=== PATIENT | male | born 1950 | race Caucasian/White ===

== ENCOUNTER → 2018-06-17 | Outpatient (CLI) | payer MEDICARE ==
[2018-06-19 14:13] LABS: PSA % FREE 33.1 % (.); PSA FREE 1.72 ng/mL; PSA TOTAL 5.2 ng/mL (0.0-4.0)
== END ==
LOC: M SMT 13:46
DX: R97.20 Elevated prostate specific antigen [PSA] (principal)
CPT/HCPCS: 84154

== ENCOUNTER → 2018-08-10 | Outpatient (CLI) | payer BC ==
--- NOTE | 2018-08-10 12:00 | REP ---
TRANSRECTAL PROSTATE ULTRASOUND WITH ULTRASOUND GUIDANCE FOR PROSTATE BIOPSY: Transrectal prostate ultrasound performed. The size of the gland of the gland is 4.7 x 4.0 x 5.7 cm for a total volume of 52.2 mL. Echotexture is heterogeneous with scattered tiny cystic changes and calcifications. Seminal vesicles are symmetrical. Ultrasound guidance was provided for Dr. Del Toro who performed ultrasound guided biopsy of the prostate. Electronically Signed by Victor Manuel Powers MD 08/10/2018 12:48 P
== END ==
LOC: M SMT PRO 08:04
PROVIDERS: ATTEND Urology
DX: C61 Malignant neoplasm of prostate (principal)
CPT/HCPCS: 76872; 76942; G0416

== ENCOUNTER → 2018-09-20 | Outpatient (CLI) | payer MEDICARE ==
[~2018-09-20] MED LIST: ASPI81TA85 PO; ATEN100T PO; HYDR12.55 PO; LATA1POW OU; LEVO50TA5 PO; LOSA100T50 PO; METF500T13 PO; OMEP20TA PO; TIMO0.5S39 OP
--- NOTE | 2018-09-20 10:21 | REP ---
Chest two views HISTORY: Prostate carcinoma Comparison: None The lungs are clear. The heart is normal in size. The pulmonary vasculature is normal in appearance. The bony structure is intact. IMPRESSION: No acute disease. Electronically Signed by Leonard Chan MD 09/20/2018 10:12 A
[2018-09-20 13:33] LABS: HEMATOCRIT 43.2 % (42.0-52.0); HEMOGLOBIN 14.4 g/dl (13.5-17.5); MEAN CORPUSCULAR HEMOGLOBIN 30.8 pg (27.0-33.0); MEAN CORPUSCULAR HGB CONC 33.3 g/dl (32.0-36.5); MEAN CORPUSCULAR VOLUME 92.3 fl (80.0-96.0); PLATELET COUNT, AUTOMATED 166 10^3/uL (150-450); RED BLOOD COUNT 4.68 10^6/uL (4.30-6.10); WHITE BLOOD COUNT 7.1 10^3/uL (4.0-10.0)
[2018-09-20 13:44] LABS: INR 0.98; PARTIAL THROMBOPLASTIN TIME 29.3 SECONDS (25.4-37.6); PROTHROMBIN TIME 13.1 SECONDS (12.1-14.4)
[2018-09-20 13:58] LABS: CALCIUM LEVEL 9.7 MG/DL (8.8-10.2); CREATININE FOR GFR 1.37 MG/DL (0.70-1.30); POTASSIUM SERUM 4.6 MEQ/L (3.5-5.1)
== END ==
LOC: M SMT 09:00
PROVIDERS: ATTEND Urology
DX: Z01.818 Encounter for other preprocedural examination (principal); C61 Malignant neoplasm of prostate; N39.0 Urinary tract infection, site not specified

== ENCOUNTER 2018-09-30 07:30 | Inpatient (IN) | payer MEDICARE ==
[~2018-09-30] VITALS: Ht 175.3 cm; Wt 93.0 kg
[~2018-09-30 07:30] MED LIST changes: +LR 1,000 ML IV ONE
[2018-09-30] MEDS: DOCUSATE SODIUM 100 MG CAP PO SCH ×2 (09:00→21:13)
[2018-09-30] MEDS ORDERED: LIDOCAINE 1% SDV INJ 30 ML VIAL As Ordered ONE (11:51)
[2018-09-30] MEDS ORDERED: BUPIVACAINE HCL 0.25% 30 ML VIAL As Ordered ONE (11:52)
[2018-09-30] MEDS ORDERED: MORPHINE 4 MG/ML 1ML VIAL/SYRINGE (J2270) IV PRN (12:15)
[2018-09-30] MEDS ORDERED: PERCOCET 5MG/325MG TAB PO PRN ×2 (12:15)
[2018-09-30] MEDS ORDERED: ACETAMINOPHEN TAB 650MG DOSE (2X325MG) PO PRN (12:15)
[2018-09-30] MEDS ORDERED: GLUCOSE 4 GM CHEW TABLET PO PRN (12:15)
[2018-09-30] MEDS ORDERED: ONDANSETRON 4MG/2ML VIAL (J2405) IV PRN ×2 (12:15→19:15)
[2018-09-30] MEDS ORDERED: GLUCAGON FOR INJ 1 MG VIAL (J1610) SC PRN (12:15)
[2018-09-30] MEDS ORDERED: DEXTROSE 50% 50 ML SYRINGE IV PRN (12:15)
[2018-09-30] MEDS ORDERED: ROCURONIUM BROMIDE 50 MG/5 ML VIAL As Ordered ONE ×2 (13:12→15:33)
[2018-09-30] MEDS ORDERED: LIDOCAINE 2% INJ 100 MG/5 ML SDV (FOR ANES.) As Ordered ONE (13:12)
[2018-09-30] MEDS ORDERED: PROPOFOL 200 MG/20 ML VIAL As Ordered ONE ×2 (13:12→17:58)
[2018-09-30] MEDS ORDERED: fentaNYL 250 MCG/5 ML INJECTION (J3010) As Ordered ONE (13:12)
[2018-09-30] MEDS ORDERED: ePHEDrine SULFATE 25 MG/5 ML(5MG/ML) SYRINGE As Ordered ONE (13:12)
[2018-09-30] MEDS ORDERED: HYDROmorphone HCL 2 MG/ML 1ML VIAL (J1170) As Ordered ONE (13:12)
[2018-09-30] MEDS ORDERED: ONDANSETRON 4MG/2ML VIAL (J2405) As Ordered ONE (13:12)
[2018-09-30] MEDS ORDERED: MIDAZOLAM INJ 2 MG/2 ML VIAL (J2250) As Ordered ONE (13:12)
[2018-09-30] MEDS ORDERED: dexameTHASONE 4 MG/ML 1ML VIAL (J1100) As Ordered ONE (13:12)
[2018-09-30] MEDS ORDERED: SUGAMMADEX SODIUM 500 MG/5 ML VIAL (BRIDION) As Ordered ONE (13:12)
[2018-09-30] MEDS ORDERED: ACETAMINOPHEN 1000MG 100ML IV BTL (OFIRMEV) (J0131 PER 10MG) As Ordered ONE (13:32)
[2018-09-30] MEDS ORDERED: HEPARIN SOD (PORCINE) 5000 UNITS/ML VIAL SC ONE ×2 (13:44→13:46)
[2018-09-30] MEDS: HumaLOG INSULIN (NovoLOG) PER UNIT SC SCH (17:30)
--- NOTE | 2018-09-30 18:57 | ROOPDOC ---
[facility] Report Of Operation Report of Operation DATE OF PROCEDURE: 09/30/18 PREPROCEDURE DIAGNOSES: Prostate Cancer. POSTPROCEDURE DIAGNOSES: Prostate Cancer. PROCEDURE: Robotic-assisted Laparoscopic Radical Prostatectomy, Anterior Bladder Neck Reconstruction, Flexible Cystoscopy with Catheter Placement Over a Wire. SURGEON: Blas Grey MD [employer] LEADER: Missy Rosas NP ANESTHESIA: General. OPERATIVE INDICATIONS: This is a 68 year old male with low risk clinical T1c Gle ason 3+3 prostate cancer. After a discussion of the options for treatment, he elected to undergo the above procedure. DESCRIPTION OF PROCEDURE: The patient was brought to the operating room and general anesthesia was induced. Prophylactic antibiotics were infused. He was then placed in the dorsal lithotomy position and prepped and draped in the usual sterile fashion. At this point, a Otto catheter was inserted into the bladder and the balloon was filled with 10 mL of sterile water. We then made a midline incision just above the umbilicus for a 12 mm port. A Veress needle was utilized to achieve pneumoperitoneum. Next, an 8 mm port was inserted into the incision and subsequently a camera was inserted. There were no injuries from the Veress needle or initial trocar placement. At this point, we placed the remaining ports, including a 12 mm foundation assistant port and then three robotic ports in the usual configuration in line with the umbilicus. Once all the ports were placed, the robot was docked. Lysis of adhesions between the sigmoid colon and abdominal wall was then performed. The bladder was then released from the anterior abdominal wall using electrocautery. Once the bladder was dropped, the fat overlying the prostate was cleared using electrocautery. The superficial dorsal vein was controlled with electrocautery. The endopelvic fascia was opened on both sides and the dorsal venous complex was cleared. Next, a #0 Vicryl [id number] stitch was placed around the dorsal venous complex. Once that was done, the bladder was opened and dissected away from the prostate. Of note, the patient had a large median lobe that made dissection of the prostate off the bladder very difficult. Once this was done, the patient had a very large bladder neck. At this point I dissected posterior and the vasa deferentia were identified. They were ligated with Weck clips and transected. The seminal vesicles were then dissected out and while doing this the right seminal vesicle was avulsed from the prostate. It was therefore send separately for pathology. At this point the neurovascular bundles were dissected off the prostate bilaterally. When that was done bilateral pedicles were ligated and transected using a Harmonic scalpel. After taking care of the pedicles and mobilizing the rectum off the prostate below. At this point, the dorsal venous complex was transected with electrocautery. The urethra was then opened and the catheter was withdrawn and the posterior urethra was transected, thus freeing the prostate. At this point, we checked for hemostasis and it did appear very good. Once hemostasis was confirmed, I then moved on to perform the vesicourethral anastomosis. The vesicourethral anastomosis was performed in running fashion using a Quill stitch. An anterior bladder neck reconstruction was performed given the redundant amount of bladder neck. Once this was done, the final #20- [place] Otto catheter was placed. The balloon was filled with 15 mL of sterile water. Upon completion of the vesicourethral anastomosis, it was tested by filling the bladder with sterile water. When trying to irrigate and aspirate fluid into the bladder we were not able to withdraw any fluid from the catheter, raising concern the catheter was not in the right place. Several attempts were made to place a new catheter into the bladder and it would go all the way in. I therefore performed flexible cystoscopy at bedside and noted a small defect in the posterior anastomosis. I was able to navigate above it and into the bladder. A wire was then advanced into the bladder and the cystoscope was withdrawn. I then advanced a 20Fr [place] tip catheter over the wire and into the bladder. The balloon was then filled with 15mL of sterile water and this catheter irrigated very well. At this point, the prostate was placed in an Endo Catch bag for future retrieval. The robot was then undocked. A Dion fascial closure device was utilized to place a #0 Vicryl suture between the fascia of the 12 mm foundation assistant port. At this point, a Julián-Salazar drain was brought in through the left robotic port skin site and the drain was positioned anterior to the bladder. The drain was secured to the skin with #2-0 Ethilon suture. Next, all the remaining ports were removed and there did not appear to be any bleeding from any of the port sites. The prostate was then extracted from the camera port site after the skin was extended. The fascia in this incision was then closed with a running #0 Vicryl stitch. The previously placed #0 Vicryl free ties through the foundation assistant port were then tied down and all incisions were irrigated. Last, all of the incisions were closed with running subcuticular #4-0 Monocryl sutures. Local anesthesia was applied. Dermabond was then applied to the incisions. This marked the conclusion of the procedure. The patient was then taken out of the dorsal lithotomy position, awakened from anesthesia and transported to the recovery room in stable condition. ESTIMATED BLOOD LOSS: 50 mL. COMPLICATIONS: None. SPECIMENS: Prostate, right seminal vesicle. PLAN: The patient will be admitted to the hospital postoperatively, and he will likely be discharged home within the next 1-2 days. BLAS GREY MD Sep 30, 2018 18:57
[2018-09-30] MEDS ORDERED: oxyCODONE 5MG TAB PO PRN (19:15)
[2018-09-30] MEDS ORDERED: HYDROMORPHONE HCL 0.5 MG/ 0.5 ML SYRINGE (J1170 PER 1) IV PRN (19:15)
[2018-09-30] MEDS ORDERED: LR 1,000 ML IV SCH (19:15)
[2018-09-30] MEDS ORDERED: fentaNYL 100 MCG/2 ML INJECTION (J3010) IV PRN (19:15)
[2018-09-30 19:21] LABS: HEMATOCRIT 41.5 % (42.0-52.0); HEMOGLOBIN 13.8 g/dl (13.5-17.5); MEAN CORPUSCULAR HEMOGLOBIN 30.7 pg (27.0-33.0); MEAN CORPUSCULAR HGB CONC 33.3 g/dl (32.0-36.5); MEAN CORPUSCULAR VOLUME 92.4 fl (80.0-96.0); PLATELET COUNT, AUTOMATED 157 10^3/uL (150-450); RED BLOOD COUNT 4.49 10^6/uL (4.30-6.10); WHITE BLOOD COUNT 12.5 10^3/uL (4.0-10.0)
[2018-09-30 19:30] VITALS: BP 117/74
[2018-09-30 19:42] LABS: CALCIUM LEVEL 8.7 MG/DL (8.8-10.2); CREATININE FOR GFR 1.65 MG/DL (0.70-1.30); GLOMERULAR FILTRATION RATE 44.4 (>49); POTASSIUM SERUM 4.6 MEQ/L (3.5-5.1)
[2018-09-30 20:15] VITALS: BP 117/74
[2018-09-30 20:45] VITALS: BP 164/84
[2018-09-30] MEDS ORDERED: HumaLOG INSULIN (NovoLOG) PER UNIT SC SCH (21:00)
[2018-09-30] MEDS ORDERED: LATANOPROST 0.005% OPHTH SOLN 2.5 ML OU SCH (21:00)
[2018-09-30] MEDS: NS 1,000 ML IV SCH ×2 (21:09→21:14)
[2018-09-30] MEDS: ceFAZolin SOD 1 GM in D5W MINI-BAG PLUS 50 ML IV SCH (21:11)
[2018-09-30] MEDS: hydroCHLOROthiazide 12.5 MG CAPSULE PO SCH (21:13)
[2018-09-30] MEDS: OMEPRAZOLE 20 MG CAP PO SCH (21:13)
[2018-09-30] MEDS: LOSARTAN 50 MG TAB PO SCH (21:14)
[2018-09-30] MEDS: HEPARIN SOD (PORCINE) 5000 UNITS/ML VIAL SC SCH (21:16)
[2018-09-30 21:45] VITALS: BP 135/85
[2018-09-30] MEDS: TIMOLOL MALEATE 0.5% OPHTH SOLN 5 ML OU SCH ×2 (22:28→22:30)
[2018-09-30 22:45] VITALS: BP 138/80
[2018-10-01] MEDS: NS 1,000 ML IV SCH (04:31)
[2018-10-01] MEDS: ceFAZolin SOD 1 GM in D5W MINI-BAG PLUS 50 ML IV SCH (05:34)
[2018-10-01] MEDS: HEPARIN SOD (PORCINE) 5000 UNITS/ML VIAL SC SCH ×2 (05:35→14:00)
[2018-10-01] MEDS ORDERED: LEVOTHYROXINE 75MCG TABLET (0.075MG) PO SCH (06:00)
[2018-10-01 06:21] LABS: HEMATOCRIT 38.6 % (42.0-52.0); HEMOGLOBIN 12.6 g/dl (13.5-17.5); MEAN CORPUSCULAR HEMOGLOBIN 30.5 pg (27.0-33.0); MEAN CORPUSCULAR HGB CONC 32.6 g/dl (32.0-36.5); MEAN CORPUSCULAR VOLUME 93.5 fl (80.0-96.0); PLATELET COUNT, AUTOMATED 150 10^3/uL (150-450); RED BLOOD COUNT 4.13 10^6/uL (4.30-6.10); WHITE BLOOD COUNT 11.6 10^3/uL (4.0-10.0)
[2018-10-01 06:39] LABS: CALCIUM LEVEL 8.3 MG/DL (8.8-10.2); CREATININE FOR GFR 1.61 MG/DL (0.70-1.30); GLOMERULAR FILTRATION RATE 45.7 (>49); POTASSIUM SERUM 4.2 MEQ/L (3.5-5.1)
[2018-10-01] MEDS: HumaLOG INSULIN (NovoLOG) PER UNIT SC SCH ×2 (07:30→12:00)
[2018-10-01] MEDS: DOCUSATE SODIUM 100 MG CAP PO SCH (08:08)
[2018-10-01] MEDS: hydroCHLOROthiazide 12.5 MG CAPSULE PO SCH (08:08)
[2018-10-01] MEDS: LOSARTAN 50 MG TAB PO SCH (08:08)
[2018-10-01 08:09] VITALS: BP 164/84
[2018-10-01] MEDS: OMEPRAZOLE 20 MG CAP PO SCH (08:09)
[2018-10-01] MEDS ORDERED: ATENOLOL 50 MG TAB PO SCH (09:00)
--- NOTE | 2018-10-01 09:53 | IPNPDOC ---
Assessment/Plan Date Seen The patient was seen on 10/01/18. Patient Summary This is a 68 y/o M POD1 s/p RALP. He is doing well this morning. His Hb is stable. His Cr is 1.6 (baseline is 1.3). Very good UOP. Plan/VTE VTE Prophylaxis Ordered?: Yes VTE Exclusion Mechanical Proph: N/A:VTE Prophy Ordered VTE Exclusion Pharmacological: N/A:VTE Prophy Ordered Plan/Urinary Catheter Urinary Catheter: Other Catheter: (catheter will need to stay in for 10-14 days for healing of the vesicourethral anastomosis) Plan - d/c IVF - percocet prn pain - cont home meds - SCDs when in bed - SQH - incentive spirometry - strict I/Os - ambulate - likely discharge home later today w/ catheter Subjective Review oF Systems Chief Complaint The patient is a 68-year-old male admitted with a reason for visit of Prostate Cancer. Events since Last Encounter No acute events o/n. Patient has minimal pain. No n/v. Has not ambulated yet. Tolerating diet. No f/c/ns. Objective Physical Examination General Exam: Alert, Cooperative, No Acute Distress ABDOMEN EXAM: Soft, Other (incisions clean/dry/ intact; STEPHANIE w/ serosanguinous output); No: Tenderness Skin Exam: Nl turgor and temperature Neuro Exam: Normal Speech Psych Exam: Mental status NL, Mood NL Other physical findings catheter draining clear urine Vital Signs/I&O Vital Signs Date Time Temp Pulse Resp B/P (MAP) Pulse Ox O2 Delivery O2 Flow Rate FiO2 10/01/18 08:09 88 164/84 09/30/18 22:45 98.6 20 96 09/30/18 20:45 2.0 I&O- Last 24 Hours up to 6 AM 10/01/18 06:00 Intake Total 4095 ml Output Total 1605 ml Balance 2490 ml Laboratory Data Labs 24H Laboratory Tests 2 09/30/18 11:52: Bedside Glucose (Misc Panel) 106 09/30/18 18:58: Nucleated Red Blood Cells % (auto) 0.0, Anion Gap 7L, Glomerular Filtration Rate 44.4L, Blood Urea Nitrogen 21H, Creatinine 1.65H, Sodium Level 138, Potassium Level 4.6, Chloride Level 104, Carbon Dioxide Level 27, Calcium Level 8.7L 09/30/18 19:01: Bedside Glucose (Misc Panel) 154H 09/30/18 21:22: Bedside Glucose (Misc Panel) 135H 10/01/18 05:33: Nucleated Red Blood Cells % (auto) 0.0, Anion Gap 7L, Glomerular Filtration Rate 45.7L, Blood Urea Nitrogen 25H, Creatinine 1.61H, Sodium Level 140, Potassium Level 4.2, Chloride Level 106, Carbon Dioxide Level 27, Calcium Level 8.3L CBC/BMP Laboratory Tests 09/30/18 18:58 Red Blood Count 4.49, Mean Corpuscular Volume 92.4, Mean Corpuscular Hemoglobin 30.7, Mean Corpuscular Hemoglobin Concent 33.3, Red Cell Distribution Width 12.8, Calcium Level 8.7 L 10/01/18 05:33 Red Blood Count 4.13 L, Mean Corpuscular Volume 93.5, Mean Corpuscular Hemoglobin 30.5, Mean Corpuscular Hemoglobin Concent 32.6, Red Cell Distribution Width 12.9, Calcium Level 8.3 L FSBS Laboratory Tests Test 09/30/18 11:52 09/30/18 19:01 09/30/18 21:22 Range/Units Bedside Glucose (Misc Panel) 106 154 135 80-115 MG/DL BLAS GREY MD Oct 01, 2018 09:53
[2018-10-01 10:00] VITALS: BP 145/86
[2018-10-01 14:00] VITALS: BP 117/70
[2018-10-01] MEDS ORDERED: COLA100C5 PO (17:00)
[2018-10-01] MEDS ORDERED: XALA0.007 OU (17:00)
[2018-10-01] MEDS ORDERED: ACET1TAB55 PO (17:00)
[2018-10-01] MEDS ORDERED: OXYC1TAB23 PO (17:00)
[2018-10-01] MEDS ORDERED: CIPR-249 PO (17:00)
--- NOTE | 2018-10-01 19:19 | DSES ---
DATE OF ADMISSION: 09/30/2018 DATE OF DISCHARGE: 10/01/2018 ADMISSION DIAGNOSIS: 1. Prostate cancer. DISCHARGE DIAGNOSIS: 1. Prostate cancer. ADMITTING PHYSICIAN: Pasquale Del Toro MD DISCHARGE PHYSICIAN: Pasquale Del Toro MD PROCEDURE PERFORMED: Robotic-assisted laparoscopic radical prostatectomy. HISTORY OF PRESENT ILLNESS: This 68-year-old male with prostate cancer who underwent the above listed procedure and was admitted postoperatively. HOSPITALIZATION COURSE: The patient's postoperative course was unremarkable. By postoperative day 1, he was ambulating well with very good pain control on oral pain medications. He was tolerating regular diet. All of his blood work was within normal limits. He had excellent urine output from his Otto catheter and minimal output from his Julián-Salazar drain. His Julián-Salazar drain was therefore removed on postoperative day 1. Since he was doing very well, he was deemed ready for discharge. He was discharged home on postoperative day 1 with his catheter in place and plan for him to followup in clinic in approximately one week to discuss pathology results. Of note, we will likely leave his catheter in for two weeks and get a cystogram prior to removing the catheter.
== END 2018-10-01 17:30 | disposition home or self-care (01) | DRG 708 ==
LOC: M OR 10:43 → M MS5PR 20:10
PROVIDERS: ADMIT Urology; ATTEND Urology
PROC: 0TQB4ZZ Repair Bladder, Percutaneous Endoscopic Approach (ICD-10-PCS; 2018-09-30)
PROC: 8E0W4CZ Robotic Assisted Procedure of Trunk Region, Percutaneous Endoscopic Approach (ICD-10-PCS; 2018-09-30)
PROC: 0TJB8ZZ Inspection of Bladder, Via Natural or Artificial Opening Endoscopic (ICD-10-PCS; 2018-09-30)
PROC: 0VT04ZZ Resection of Prostate, Percutaneous Endoscopic Approach (ICD-10-PCS; principal; 2018-09-30 12:45)
DX: C61 Malignant neoplasm of prostate (principal); D64.9 Anemia, unspecified; E11.9 Type 2 diabetes mellitus without complications; I10 Essential (primary) hypertension; E78.5 Hyperlipidemia, unspecified; E03.9 Hypothyroidism, unspecified; Z95.2 Presence of prosthetic heart valve; Z79.82 Long term (current) use of aspirin; Z79.84 Long term (current) use of oral hypoglycemic drugs; Z79.899 Other long term (current) drug therapy

== ENCOUNTER → 2018-11-04 | Outpatient (CLI) | payer MEDICARE, BC ==
[~2018-11-04] MED LIST changes: +ACET1TAB55 PO; +CIPR-249 PO; +COLA100C5 PO; -LR 1,000 ML IV ONE; +OXYC1TAB23 PO; +XALA0.007 OU
== END ==
LOC: M SMT 13:01
PROVIDERS: ATTEND Urology
DX: C61 Malignant neoplasm of prostate (principal)

== ENCOUNTER → 2019-02-04 | Outpatient (CLI) | payer MEDICARE, BC | LOC: M SMT 09:39 | PROVIDERS: ATTEND Urology | DX: C61 Malignant neoplasm of prostate (principal) ==

== ENCOUNTER → 2019-05-11 | Outpatient (CLI) | payer MEDICARE, BC ==
[~2019-05-11] MED LIST changes: +OMEP-358 PO; -OMEP20TA PO
== END ==
LOC: M SMT 09:58
PROVIDERS: ATTEND Urology
DX: C61 Malignant neoplasm of prostate (principal)

== ENCOUNTER → 2019-08-10 | Outpatient (CLI) | payer MEDICARE | LOC: M PLALAB 10:11 | PROVIDERS: ATTEND Urology | DX: C61 Malignant neoplasm of prostate (principal) ==

== ENCOUNTER → 2020-01-03 | Outpatient (CLI) | payer MEDICARE, BC | LOC: M LAB 13:59 | PROVIDERS: ATTEND Urology | DX: C61 Malignant neoplasm of prostate (principal); R97.20 Elevated prostate specific antigen [PSA] ==

== ENCOUNTER → 2020-02-15 | Outpatient (CLI) | payer MEDICARE, BC ==
[~2020-02-15] MED LIST changes: -ASPI81TA85 PO; +ASPI81TA86 PO
== END ==
LOC: M LAB 10:30
PROVIDERS: ATTEND Urology
DX: R97.20 Elevated prostate specific antigen [PSA] (principal); C61 Malignant neoplasm of prostate

== ENCOUNTER → 2020-06-18 | Outpatient (CLI) | payer MEDICARE, BC | LOC: M LABSMTC 13:00 | PROVIDERS: ATTEND Pediatrics | DX: Z20.828 Contact with and (suspected) exposure to other viral communicable diseases (principal) ==

== ENCOUNTER → 2021-01-22 | Outpatient (CLI) | payer BC, MEDICARE ==
[~2021-01-22] MED LIST changes: +LOSA100T45 PO; -LOSA100T50 PO
== END ==
LOC: M LAB 08:37
PROVIDERS: ATTEND Urology
DX: C61 Malignant neoplasm of prostate (principal)

== ENCOUNTER → 2021-02-01 | Outpatient (REF) | payer BC, MEDICARE ==
[~2021-02-01] MED LIST changes: -LOSA100T45 PO; +LOSA100T50 PO
[2021-02-01 17:02] LABS: BASO % 0.2 % (0.0-1.0); EOS # 0.2 10^3/uL (0.0-0.5); EOS % 2.6 % (0.0-3.0); HEMATOCRIT 46.1 % (42.0-52.0); HEMOGLOBIN 14.4 g/dl (13.5-17.5); LYMPH # 1.1 10^3/uL (1.5-5.0); LYMPH % 12.5 % (24.0-44.0); MEAN CORPUSCULAR HEMOGLOBIN 28.4 pg (27.0-33.0); MEAN CORPUSCULAR HGB CONC 31.2 g/dl (32.0-36.5); MEAN CORPUSCULAR VOLUME 90.9 fl (80.0-96.0); MONO # 0.9 10^3/uL (0.0-0.8); MONO % 9.9 % (2.0-8.0); NEUTROPHILS # 6.6 10^3/uL (1.5-8.5); NEUTROPHILS % 74.2 % (36.0-66.0); PLATELET COUNT, AUTOMATED 202 10^3/uL (150-450); RED BLOOD COUNT 5.07 10^6/uL (4.30-6.10); WHITE BLOOD COUNT 8.9 10^3/uL (4.0-10.0)
[2021-02-01 17:39] LABS: ERYTHROCYTE SEDIMENTATION RATE 14 mm/hr (0-20)
[2021-02-01 18:42] LABS: ALBUMIN 3.9 GM/DL (3.2-5.2); ALT/SGPT 23 U/L (12-78); BILIRUBIN,DIRECT < 0.1 MG/DL (0.0-0.2); BILIRUBIN,TOTAL 0.5 MG/DL (0.2-1.0); C REACTIVE PROTEIN QUANTITATIV 1.77 MG/DL (0.00-0.30); COMPLEMENT C3 139 MG/DL (90-180); COMPLEMENT C4 28 MG/DL (10-40); CPK CREATINE PHOSPHOKINASE 49 U/L (39-308); LDH LACTATE DEHYDROGENASE 141 U/L (87-241); MYOGLOBIN 57 NG/ML (16-116); TOTAL PROTEIN 7.9 GM/DL (6.4-8.2); URIC ACID 6.6 MG/DL (3.5-7.2)
[2021-02-07 10:40] LABS: ALBUMIN 4.48 GM/DL (3.29-5.55); ALBUMIN % 56.7 % (55.8-66.1); ALPHA-1-GLOBULIN % 4.2 % (2.9-4.9); ALPHA-1-GLOBULINS 0.33 GM/DL (0.17-0.41); ALPHA-2-GLOBULINS 0.86 GM/DL (0.42-0.99); ALPHA-2-GLOBULINS % 10.9 % (7.1-11.8); BETA-1-GLOBULINS 0.44 GM/DL (0.28-0.60); BETA-1-GLOBULINS % 5.6 % (4.7-7.2); BETA-2-GLOBULINS 0.55 GM/DL (0.19-0.55); BETA-2-GLOBULINS % 6.9 % (3.2-6.5); GAMMA GLOBULIN % 15.7 % (11.1-18.8); GAMMA GLOBULINS 1.24 GM/DL (0.65-1.58)
[2021-02-15 18:09] LABS: ALDOLASE 6.2 U/L (3.3-10.3); COMPLEMENT TOTAL (CH50) > 60 U/mL (>41); Mi-2 ANTIBODIES Negative (Negative)
== END ==
LOC: M SFHCRHEU 10:01
PROVIDERS: ATTEND Internal Medicine
DX: M25.50 Pain in unspecified joint (principal); D72.810 Lymphocytopenia; M62.81 Muscle weakness (generalized)
CPT/HCPCS: 80076; 82085; 82550; 83516; 83615; 83874; 84165; 84550; 85025; 85652; 86140; 86160; 86162; 86235; G0463

== ENCOUNTER → 2021-03-15 | Outpatient (REF) | payer BC, MEDICARE ==
[2021-03-15 17:03] LABS: MAGNESIUM LEVEL 2.4 MG/DL (1.8-2.4)
== END ==
LOC: M SFHCRHEU 14:28
PROVIDERS: ATTEND Internal Medicine
DX: M62.81 Muscle weakness (generalized) (principal); M25.50 Pain in unspecified joint; Z79.899 Other long term (current) drug therapy

== ENCOUNTER → 2021-04-25 | Outpatient (CLI) | payer MEDICARE | LOC: M LAB 15:00 | PROVIDERS: ATTEND Urology | DX: C61 Malignant neoplasm of prostate (principal) ==

== ENCOUNTER → 2021-09-12 | Outpatient (REF) | payer MEDICARE ==
[~2021-09-12] MED LIST changes: +LOSA100T45 PO; -LOSA100T50 PO
== END ==
LOC: M SFHCRHEU 11:31
PROVIDERS: ATTEND Internal Medicine
DX: E55.9 Vitamin D deficiency, unspecified (principal); Z79.899 Other long term (current) drug therapy

== ENCOUNTER → 2021-10-15 | Outpatient (CLI) | payer MEDICARE | LOC: M LAB 10:17 | PROVIDERS: ATTEND Urology | DX: R97.20 Elevated prostate specific antigen [PSA] (principal) ==

== ENCOUNTER → 2022-04-21 | Outpatient (CLI) | payer MEDICARE | LOC: M LAB 14:52 | PROVIDERS: ATTEND Urology | DX: C61 Malignant neoplasm of prostate (principal) ==

== ENCOUNTER → 2022-10-13 | Outpatient (CLI) | payer MEDICARE | LOC: M LAB 10:41 | PROVIDERS: ATTEND Urology | DX: C61 Malignant neoplasm of prostate (principal) ==

== ENCOUNTER → 2022-10-13 | Outpatient (CLI) | payer MEDICARE ==
[2022-10-13 13:34] LABS: CHOLESTEROL RISK RATIO 5.63 (<5); HDL CHOLESTEROL 32.5 MG/DL (>40); MAGNESIUM LEVEL 1.7 MG/DL (1.8-2.4); NON-HDL-C 150.5 MG/DL
[2022-10-13 14:36] LABS: HEMOGLOBIN A1c 6.4 % (4.0-6.0)
[2022-10-13 18:40] LABS: LDL CHOLESTEROL 81.3 MG/DL (<100)
== END ==
LOC: M LAB 10:39
PROVIDERS: ATTEND Registered Nurse
DX: E83.42 Hypomagnesemia (principal)

== ENCOUNTER → 2023-04-21 | Outpatient (CLI) | payer MEDICARE ==
[~2023-04-21] MED LIST changes: -LOSA100T45 PO; +LOSA100T46 PO
== END ==
LOC: M LAB 09:35
PROVIDERS: ATTEND Urology
DX: C61 Malignant neoplasm of prostate (principal)

== ENCOUNTER → 2023-10-29 | Outpatient (CLI) | payer MEDICARE | LOC: M LAB 12:44 | PROVIDERS: ATTEND Urology | DX: C61 Malignant neoplasm of prostate (principal) ==

== ENCOUNTER → 2024-06-06 | Outpatient (CLI) | payer MEDICARE | LOC: M LAB 10:51 | PROVIDERS: ATTEND Urology | DX: C61 Malignant neoplasm of prostate (principal) ==

== ENCOUNTER → 2024-10-24 | Outpatient (CLI) | payer MEDICARE ==
[2024-10-24 09:36] LABS: APPEARANCE, URINE CLEAR (CLEAR); BACTERIA, URINE AUTO NEGATIVE (NEGATIVE); BILIRUBIN, URINE AUTO NEGATIVE (NEGATIVE); BLOOD, URINE BLOOD NEGATIVE (NEGATIVE); COLOR, URINE YELLOW (YELLOW); GLUCOSE, URINE (UA) AUTO NEGATIVE (NEGATIVE); KETONE, URINE AUTO NEGATIVE (NEGATIVE); LEUKOCYTE ESTERASE, URINE AUTO NEGATIVE (NEGATIVE); MUCUS, URINE SMALL (NEGATIVE); NITRITE, URINE AUTO NEGATIVE (NEGATIVE); PROTEIN, URINE AUTO NEGATIVE (NEGATIVE); RBC, URINE AUTO 0 /HPF (0-3); SPECIFIC GRAVITY URINE AUTO 1.015 (1.002-1.035); SQUAMOUS EPITHELIAL CELL UR AU 0 /HPF (0-6); UROBILINOGEN, URINE AUTO 0.2 mg/dL (0.0-2.0); WBC, URINE AUTO 0 /HPF (0-3)
[2024-10-24 09:39] LABS: HEMATOCRIT 37.5 % (42.0-52.0); HEMOGLOBIN 11.9 g/dl (13.5-17.5); MEAN CORPUSCULAR HEMOGLOBIN 28.1 pg (27.0-33.0); MEAN CORPUSCULAR HGB CONC 31.7 g/dl (32.0-36.5); MEAN CORPUSCULAR VOLUME 88.4 fl (80.0-96.0); PLATELET COUNT, AUTOMATED 123 10^3/uL (150-450); RED BLOOD COUNT 4.24 10^6/uL (4.30-6.10); WHITE BLOOD COUNT 4.8 10^3/uL (4.0-10.0)
[2024-10-24 09:53] LABS: HEMOGLOBIN A1c 6.1 % (4.0-6.0)
[2024-10-24 10:09] LABS: URIC ACID 9.1 MG/DL (3.7-9.2)
[2024-10-24 10:10] LABS: CREATININE, URINE 112.8 MG/DL; MAU/CREAT RATIO 18.6 MCG/MG (0.0-30.0)
[2024-10-24 10:12] LABS: ALBUMIN 3.3 G/DL (3.2-5.2); BILIRUBIN,TOTAL 0.8 MG/DL (0.3-1.2); CALCIUM LEVEL 8.9 MG/DL (8.3-10.6); CHOLESTEROL RISK RATIO 6.25 (<5); CREATININE FOR GFR 1.31 MG/DL (0.70-1.30); GLOMERULAR FILTRATION RATE 57.1 (>42); HDL CHOLESTEROL 21.9 MG/DL (>40); LDL CHOLESTEROL 87.5 MG/DL (<100); MAGNESIUM LEVEL 2.1 MG/DL (1.8-2.4); NON-HDL-C 115.1 MG/DL; POTASSIUM SERUM 4.8 MMOL/L (3.5-5.1); TOTAL PROTEIN 6.6 G/DL (5.7-8.2)
[2024-10-24 10:13] LABS: TOTAL 25(OH) VITAMIN D 37.7 NG/ML (20.0-100.0)
[2024-10-24 10:14] LABS: FREE T4 0.85 NG/DL (0.89-1.76); THYROID STIMULATING HORMONE 6.87 uIU/ML (0.55-4.78)
[2024-10-24 10:32] LABS: FREE T3 3.3 PG/ML (2.3-4.2)
== END ==
LOC: M LAB 08:38
PROVIDERS: ATTEND Registered Nurse
DX: E11.9 Type 2 diabetes mellitus without complications (principal)

== ENCOUNTER → 2024-11-25 | Outpatient (CLI) | payer MEDICARE | LOC: M LAB 13:36 | PROVIDERS: ATTEND Urology | DX: C61 Malignant neoplasm of prostate (principal) ==

== ENCOUNTER → 2025-02-03 | Outpatient (REF) | payer MEDICARE ==
[~2025-02-03] MED LIST changes: +FAMO1TAB11; -TIMO0.5S39 OP; +TIMO5DRO9 OP
[2025-02-03 17:42] LABS: IRON (FE) 17.0 UG/DL (65-175); PERCENT SATURATION 8.3 % (19.7-50.0)
== END ==
LOC: M LAB REF 16:53
PROVIDERS: ATTEND Internal Medicine Nephrology
DX: N17.9 Acute kidney failure, unspecified (principal); D50.9 Iron deficiency anemia, unspecified

== ENCOUNTER 2025-02-14 16:23 | Inpatient (IN) | payer MEDICARE ==
[~2025-02-14] VITALS: Ht 175.3 cm; Wt 80.0 kg
[~2025-02-14 16:23] MED LIST changes: -ASPI81TA26 PO; -MED REC COMMENT; -SODI650T PO
[2025-02-14 17:45] VITALS: BP 168/73; TEMP 97.9; O2SAT 97
[2025-02-14] MEDS ORDERED: SODI650T PO (19:09)
[2025-02-14] MEDS ORDERED: ASPI81TA26 PO (19:09)
[2025-02-14] MEDS ORDERED: MED REC COMMENT (19:12)
[2025-02-14 19:14] LABS: BASO # 0.0 10^3/uL (0.0-0.2); BASO % 0.3 % (0.0-1.0); EOS # 0.2 10^3/uL (0.0-0.5); EOS % 5.0 % (0.0-3.0); LYMPH # 1.1 10^3/uL (1.5-5.0); LYMPH % 30.6 % (24.0-44.0); MONO # 0.4 10^3/uL (0.0-0.8); MONO % 11.1 % (2.0-8.0); NEUTROPHILS # 1.8 10^3/uL (1.5-8.5); NEUTROPHILS % 52.7 % (36.0-66.0)
[2025-02-14 19:23] LABS: PLATELET COUNT, AUTOMATED 49 10^3/uL (150-450)
[2025-02-14 19:26] LABS: INR 1.29
[2025-02-14 19:37] LABS: ALT/SGPT 45.0 U/L (7.0-40); AST/SGOT 55.0 U/L (<34); CALCIUM LEVEL 8.5 MG/DL (8.3-10.6); CARBON DIOXIDE LEVEL 18.0 MMOL/L (20-31); CHLORIDE LEVEL 105.0 MMOL/L (98-107); CREATININE FOR GFR 6.36 MG/DL (0.70-1.30); GLOMERULAR FILTRATION RATE 8.6 (>42); MAGNESIUM LEVEL 1.4 MG/DL (1.8-2.4); PHOSPHORUS LEVEL 4.8 MG/DL (2.4-5.1); POTASSIUM SERUM 5.3 MMOL/L (3.5-5.1); SODIUM LEVEL 136.0 MMOL/L (136-145)
[2025-02-14] MEDS ORDERED: FAMOTIDINE 20 MG TAB PO PRN (19:45)
[2025-02-14 19:55] VITALS: BP 109/73; TEMP 98.1; O2SAT 98
[2025-02-14] MEDS: methylPREDNISolone 500 MG, VIAL MATE ADAPTER 1 EACH in NS 100 ML IV ONE (21:50)
[2025-02-14] MEDS: LATANOPROST 0.005% OPHTH SOLN 2.5 ML OU SCH (21:53)
[2025-02-14] MEDS: SODIUM BICARBONATE 325 MG TAB PO SCH (21:53)
[2025-02-14] MEDS: MAG SULF 1GM/100ML (MAG RUN) 1 GM in IV 1 EA IV SCH (23:11)
[2025-02-15] VITALS (10 sets, daily range): BP systolic 110–184; BP diastolic 73–92; TEMP 97.1–97.9; O2SAT 97–100
[2025-02-15] MEDS: PATIROMER SORBITEX CALCIUM 8.4GM POWDER PACKET PO ONE (00:25)
[2025-02-15] MEDS: LEVOTHYROXINE 75 MCG TABLET (0.075 MG) PO SCH (05:42)
[2025-02-15 06:22] LABS: PLATELET COUNT, AUTOMATED 48 10^3/uL (150-450)
[2025-02-15 06:46] LABS: ALT/SGPT 51.0 U/L (7.0-40); AST/SGOT 55.0 U/L (<34); CALCIUM LEVEL 8.8 MG/DL (8.3-10.6); CARBON DIOXIDE LEVEL 15.0 MMOL/L (20-31); CHLORIDE LEVEL 106.0 MMOL/L (98-107); CREATININE FOR GFR 6.22 MG/DL (0.70-1.30); GLOMERULAR FILTRATION RATE 8.8 (>42); POTASSIUM SERUM 5.5 MMOL/L (3.5-5.1); SODIUM LEVEL 136.0 MMOL/L (136-145)
[2025-02-15] MEDS: TIMOLOL MALEATE 0.5% OPHTH SOLN 5 ML OU SCH (08:28)
[2025-02-15] MEDS: CALCIUM GLUCONATE 1,000 MG in DEXTROSE 5% (D5W) MINI-BAG PLU 100 ML IV ONE (10:00)
[2025-02-15 11:18] LABS: ANTI-STREPTOLYSIN O QUANT 94.8 IU/ML (<195); COMPLEMENT C4 34.0 MG/DL (12-36); RHEUMATOID FACTOR QUANT 18.5 IU/ML (<14)
[2025-02-15] MEDS: methylPREDNISolone 1,000 MG, VIAL MATE ADAPTER 1 EACH in NS 100 ML IV SCH (11:33)
[2025-02-15] MEDS: SODIUM BICARBONATE 150 MEQ in STERILE WATER LITER BAG 1,000 ML IV SCH (12:30)
[2025-02-15] MEDS: SODIUM BICARBONATE 325 MG TAB PO SCH (15:41)
[2025-02-15 17:26] LABS: PLATELET COUNT, AUTOMATED 51 10^3/uL (150-450)
[2025-02-15 20:12] LABS: T UPTAKE 39.2 % (22.5-37.0); THYROXINE (T4) 7.9 UG/DL (4.5-10.9)
[2025-02-15] MEDS: METOPROLOL TART 12.5 MG PER 1/2 TAB PO SCH (22:35)
[2025-02-15] MEDS: METOPROLOL 5 MG/5 ML VIAL IV SCH ×2 (23:03→23:45)
[2025-02-15 23:04] LABS: VENOUS BASE EXCESS -8.1 (-2.0-2.0); VENOUS HCO3 17.3 MMOL/L (23.0-27.0); VENOUS O2 SATURATION 69.2 % (60.0-80.0); VENOUS PARTIAL PRESSURE CO2 35.3 mmHg (38.0-50.0); VENOUS PARTIAL PRESSURE O2 40.3 mmHg (30.0-50.0); VENOUS PH 7.309 UNITS (7.330-7.430); VENOUS STANDARD HCO3 17.4 MMOL/L; VENOUS TOTAL CO2 18.4 MMOL/L (24.0-28.0)
[2025-02-15 23:36] LABS: CALCIUM LEVEL 8.9 MG/DL (8.3-10.6); CARBON DIOXIDE LEVEL 20.0 MMOL/L (20-31); CHLORIDE LEVEL 101.0 MMOL/L (98-107); CREATININE FOR GFR 5.89 MG/DL (0.70-1.30); GLOMERULAR FILTRATION RATE 9.4 (>42); MAGNESIUM LEVEL 1.8 MG/DL (1.8-2.4); PHOSPHORUS LEVEL 5.7 MG/DL (2.4-5.1); POTASSIUM SERUM 4.3 MMOL/L (3.5-5.1); SODIUM LEVEL 137.0 MMOL/L (136-145)
[2025-02-16] VITALS (10 sets, daily range): BP systolic 127–190; BP diastolic 65–91; TEMP 96.5–98.5; O2SAT 99–100
[2025-02-16] MEDS: METOPROLOL TART 12.5 MG PER 1/2 TAB PO ONE (00:28)
[2025-02-16 05:46] LABS: PLATELET COUNT, AUTOMATED 56 10^3/uL (150-450)
[2025-02-16 05:52] LABS: INR 1.34
[2025-02-16 06:02] LABS: ALT/SGPT 34.0 U/L (7.0-40); AST/SGOT 26.0 U/L (<34); CALCIUM LEVEL 8.5 MG/DL (8.3-10.6); CARBON DIOXIDE LEVEL 21.0 MMOL/L (20-31); CHLORIDE LEVEL 101.0 MMOL/L (98-107); CREATININE FOR GFR 5.71 MG/DL (0.70-1.30); GLOMERULAR FILTRATION RATE 9.8 (>42); POTASSIUM SERUM 3.9 MMOL/L (3.5-5.1); SODIUM LEVEL 136.0 MMOL/L (136-145)
[2025-02-16] MEDS: FAMOTIDINE 20 MG TAB PO SCH (08:38)
[2025-02-16] MEDS: amLODIPine 10 MG TAB PO SCH (08:39)
[2025-02-16] MEDS: hydrALAZINE 20 MG/ML 1 ML VIAL IV STA (08:41)
[2025-02-16] MEDS ORDERED: METOPROLOL TART 25 MG TABLET PO SCH (09:00)
[2025-02-16] MEDS ORDERED: PILL CUTTER 1 EACH XX ONE (09:39)
[2025-02-16] MEDS ORDERED: **hydrALAZINE HCL** 25 MG TAB PO SCH (12:00)
[2025-02-16 12:54] LABS: KETONE, URINE AUTO RFX NEGATIVE (NEGATIVE); LEUKOCYTE ESTERASE UR AUTO RFX NEGATIVE (NEGATIVE); NITRITE, URINE AUTO RFX NEGATIVE (NEGATIVE); RBC, URINE AUTO RFX 88 /HPF (0-3); SQUAM EPITHELIAL CELL UR AURFX 0 /HPF (0-6); WBC, URINE AUTO RFX 3 /HPF (0-3)
[2025-02-16] MEDS ORDERED: PIPERACILLIN/TAZOBACTAM SOD 4.5 GM in DEXTROSE 5% (D5W) ADV/MINI-BAG 50 ML IV SCH (19:00)
[2025-02-16 20:01] LABS: BASO # 0.0 10^3/uL (0.0-0.2); BASO % 0.0 % (0.0-1.0); EOS # 0.0 10^3/uL (0.0-0.5); EOS % 0.0 % (0.0-3.0); LYMPH # 0.5 10^3/uL (1.5-5.0); LYMPH % 8.1 % (24.0-44.0); MONO # 0.2 10^3/uL (0.0-0.8); MONO % 4.1 % (2.0-8.0); NEUTROPHILS # 5.0 10^3/uL (1.5-8.5); NEUTROPHILS % 86.6 % (36.0-66.0)
[2025-02-16 20:04] LABS: PLATELET COUNT, AUTOMATED 69 10^3/uL (150-450)
[2025-02-16 20:27] LABS: ALT/SGPT 47.0 U/L (7.0-40); AST/SGOT 43.0 U/L (<34); CALCIUM LEVEL 8.0 MG/DL (8.3-10.6); CARBON DIOXIDE LEVEL 23.0 MMOL/L (20-31); CHLORIDE LEVEL 94.0 MMOL/L (98-107); CREATININE FOR GFR 5.24 MG/DL (0.70-1.30); GLOMERULAR FILTRATION RATE 10.8 (>42); POTASSIUM SERUM 4.0 MMOL/L (3.5-5.1); SODIUM LEVEL 135.0 MMOL/L (136-145)
[2025-02-16] MEDS: PIPERACILLIN/TAZOBACTAM SOD 4.5 GM in DEXTROSE 5% (D5W) ADV/MINI-BAG 50 ML IV SCH (20:32)
[2025-02-16] MEDS: METOPROLOL TART 12.5 MG PER 1/2 TAB PO SCH (20:33)
[2025-02-16] MEDS: NS 500 ML IV ONE (21:52)
[2025-02-17] VITALS (25 sets, daily range): BP systolic 132–207; BP diastolic 68–105; TEMP 96–98.1; O2SAT 95–100
[2025-02-17 03:38] LABS: PLATELET COUNT, AUTOMATED 64 10^3/uL (150-450)
[2025-02-17 04:13] LABS: ALT/SGPT 38.0 U/L (7.0-40); AST/SGOT 26.0 U/L (<34); CALCIUM LEVEL 8.2 MG/DL (8.3-10.6); CARBON DIOXIDE LEVEL 29.0 MMOL/L (20-31); CHLORIDE LEVEL 96.0 MMOL/L (98-107); CREATININE FOR GFR 5.24 MG/DL (0.70-1.30); GLOMERULAR FILTRATION RATE 10.8 (>42); POTASSIUM SERUM 3.5 MMOL/L (3.5-5.1); SODIUM LEVEL 139.0 MMOL/L (136-145)
[2025-02-17] MEDS: SODIUM CHLORIDE 0.9% 1000 ML XX SCH ×2 (07:55→15:43)
[2025-02-17] MEDS ORDERED: MIDAZOLAM INJ 2 MG/2 ML VIAL IV PRN (07:55)
[2025-02-17 08:23] LABS: ERYTHROCYTE SEDIMENTATION RATE 17 mm/hr (0-20)
[2025-02-17 08:52] LABS: ALT/SGPT 38.0 U/L (7.0-40); AST/SGOT 26.0 U/L (<34); C REACTIVE PROTEIN QUANTITATIV 1.86 MG/DL (<1.0); MAGNESIUM LEVEL 1.7 MG/DL (1.8-2.4); PHOSPHORUS LEVEL 5.3 MG/DL (2.4-5.1)
[2025-02-17 09:16] LABS: CALCIUM LEVEL 8.0 MG/DL (8.3-10.6); CARBON DIOXIDE LEVEL 30.0 MMOL/L (20-31); CHLORIDE LEVEL 97.0 MMOL/L (98-107); CREATININE FOR GFR 5.2 MG/DL (0.70-1.30); GLOMERULAR FILTRATION RATE 10.9 (>42); POTASSIUM SERUM 3.4 MMOL/L (3.5-5.1); SODIUM LEVEL 142.0 MMOL/L (136-145)
[2025-02-17 09:21] LABS: PLATELET COUNT, AUTOMATED 67 10^3/uL (150-450)
[2025-02-17] MEDS ORDERED: LABETALOL 100 MG/20 ML VIAL As Ordered ONE (09:25)
[2025-02-17] MEDS: LABETALOL 100 MG/20 ML VIAL IV SCH ×2 (09:29→09:47)
[2025-02-17] MEDS: LIDOCAINE 1% MDV 20 ML VIAL SC SCH ×2 (10:30→17:08)
[2025-02-17] MEDS: NS (Normal Saline) 0.9% 1,000 ML IV SCH ×2 (10:30→15:43)
[2025-02-17] MEDS: LABETALOL 100 MG/20 ML VIAL IV STA (10:37)
[2025-02-17 12:31] LABS: INR 1.49
[2025-02-17] MEDS ORDERED: NALOXONE INJ 0.4 MG/1 ML VIAL IV PRN (12:55)
[2025-02-17] MEDS: ACETAMINOPHEN 500 MG TAB PO ONE (13:07)
[2025-02-17] MEDS: HYDROMORPHONE HCL 0.5 MG/0.5 ML SYRINGE IV ONE (13:07)
[2025-02-17] MEDS ORDERED: ISOVUE-370 76% 100 ML VIAL As Ordered ONE (14:52)
[2025-02-17 15:41] LABS: TOTAL PROTEIN 24 HOUR URINE 2556.0 MG/24HR (50-80); URINE TOTAL PROTEIN 113.6 MG/DL (0-14)
[2025-02-17] MEDS: ONDANSETRON 4MG 2ML VIAL IV ONE (15:42)
[2025-02-17 15:54] LABS: PLATELET COUNT, AUTOMATED 100 10^3/uL (150-450)
[2025-02-17] MEDS: MIDAZOLAM INJ 2 MG/2 ML VIAL IV PRN (16:06)
[2025-02-17] MEDS: ISOVUE-300 61% 100 ML VIAL IV SCH (17:08)
[2025-02-17] MEDS ORDERED: DEXTROSE 50% 50 ML SYRINGE IV PRN (17:55)
[2025-02-17] MEDS ORDERED: hydrALAZINE 20 MG/ML 1 ML VIAL IV PRN (17:55)
[2025-02-17] MEDS ORDERED: GLUCOSE 4 GM CHEW PO PRN (17:55)
[2025-02-17] MEDS ORDERED: GLUCAGON INJ 1 MG VIAL SC PRN (17:55)
[2025-02-17] MEDS: INSULIN LISPRO (NovoLOG) PER UNIT SC SCH (18:00)
[2025-02-17] MEDS ORDERED: METOPROLOL 5 MG/5 ML VIAL IV PRN (18:35)
[2025-02-17 18:57] LABS: PLATELET COUNT, AUTOMATED 122 10^3/uL (150-450)
[2025-02-17 19:29] LABS: ALT/SGPT 34.0 U/L (7.0-40); AST/SGOT 25.0 U/L (<34); CALCIUM LEVEL 7.7 MG/DL (8.3-10.6); CARBON DIOXIDE LEVEL 26.0 MMOL/L (20-31); CHLORIDE LEVEL 96.0 MMOL/L (98-107); CREATININE FOR GFR 5.29 MG/DL (0.70-1.30); GLOMERULAR FILTRATION RATE 10.7 (>42); MAGNESIUM LEVEL 1.6 MG/DL (1.8-2.4); POTASSIUM SERUM 3.6 MMOL/L (3.5-5.1); SODIUM LEVEL 141.0 MMOL/L (136-145)
[2025-02-17] MEDS: SODIUM BICARBONATE 325 MG TAB PO SCH (21:00)
[2025-02-17] MEDS: amLODIPine 10 MG TAB PO SCH (21:00)
[2025-02-18] VITALS (12 sets, daily range): BP systolic 127–167; BP diastolic 72–85; TEMP 96.8–97.7; O2SAT 96–98
[2025-02-18 01:31] LABS: PLATELET COUNT, AUTOMATED 110 10^3/uL (150-450)
[2025-02-18 05:42] LABS: BASO # 0.0 10^3/uL (0.0-0.2); BASO % 0.1 % (0.0-1.0); EOS # 0.0 10^3/uL (0.0-0.5); EOS % 0.0 % (0.0-3.0); LYMPH # 0.8 10^3/uL (1.5-5.0); LYMPH % 6.4 % (24.0-44.0); MONO # 1.3 10^3/uL (0.0-0.8); MONO % 10.5 % (2.0-8.0); NEUTROPHILS # 10.0 10^3/uL (1.5-8.5); NEUTROPHILS % 81.9 % (36.0-66.0)
[2025-02-18 05:50] LABS: PLATELET COUNT, AUTOMATED 89 10^3/uL (150-450)
[2025-02-18 05:58] LABS: INR 1.41
[2025-02-18 06:29] LABS: ALT/SGPT 33 U/L (7.0-40); AST/SGOT 22 U/L (<34); CALCIUM LEVEL 7.7 MG/DL (8.3-10.6); CARBON DIOXIDE LEVEL 24 MMOL/L (20-31); CHLORIDE LEVEL 96 MMOL/L (98-107); CREATININE FOR GFR 5.75 MG/DL (0.70-1.30); GLOMERULAR FILTRATION RATE 9.7 (>42); MAGNESIUM LEVEL 1.6 MG/DL (1.8-2.4); PHOSPHORUS LEVEL 9.7 MG/DL (2.4-5.1); POTASSIUM SERUM 4.1 MMOL/L (3.5-5.1); SODIUM LEVEL 141 MMOL/L (136-145)
[2025-02-18] MEDS: predniSONE 20 MG TAB PO SCH (07:49)
[2025-02-18] MEDS: PERCOCET 5MG/325MG TAB PO PRN (07:50)
[2025-02-18] MEDS: CALCIUM ACETATE 667 MG GELCAP PO SCH (10:00)
[2025-02-18] MEDS: MAG SULF 1GM/100ML (MAG RUN) 1 GM in IV 1 EA IV SCH (10:00)
[2025-02-18 12:39] LABS: HEPATITIS C VIRUS ABY INDEX < 0.02 INDEX (<0.8)
[2025-02-18] MEDS ORDERED: MORPHINE 4 MG/ML 1 ML VIAL IV PRN (13:05)
[2025-02-18 13:06] LABS: HEPATITIS B SURFACE ANTIBODY POSITIVE (POSITIVE)
[2025-02-18 14:06] LABS: PLATELET COUNT, AUTOMATED 78 10^3/uL (150-450)
[2025-02-18 16:41] LABS: COMPLEMENT TOTAL (CH50) > 60 U/mL (31-60)
[2025-02-18] MEDS: NS (Normal Saline) 0.9% 1,000 ML IV ONE (19:10)
[2025-02-19] VITALS (10 sets, daily range): BP systolic 125–154; BP diastolic 68–84; TEMP 97.4–98.5; O2SAT 94–97
[2025-02-19 05:17] LABS: PLATELET COUNT, AUTOMATED 68 10^3/uL (150-450)
[2025-02-19 05:34] LABS: ALT/SGPT 32.0 U/L (7.0-40); AST/SGOT 58.0 U/L (<34); CALCIUM LEVEL 7.5 MG/DL (8.3-10.6); CARBON DIOXIDE LEVEL 29.0 MMOL/L (20-31); CHLORIDE LEVEL 97.0 MMOL/L (98-107); CREATININE FOR GFR 6.3 MG/DL (0.70-1.30); GLOMERULAR FILTRATION RATE 8.7 (>42); POTASSIUM SERUM 4.0 MMOL/L (3.5-5.1); SODIUM LEVEL 141.0 MMOL/L (136-145)
[2025-02-19] MEDS ORDERED: NS (Normal Saline) 0.9% 1,000 ML IV SCH (05:55)
[2025-02-19 06:00] LABS: ERYTHROCYTE SEDIMENTATION RATE 9 mm/hr (0-20)
[2025-02-19 06:48] LABS: C REACTIVE PROTEIN QUANTITATIV 2.12 MG/DL (<1.0)
[2025-02-19 10:33] LABS: PLATELET COUNT, AUTOMATED 69 10^3/uL (150-450)
[2025-02-19 10:50] LABS: ALT/SGPT 29.0 U/L (7.0-40); AST/SGOT 58.0 U/L (<34); CALCIUM LEVEL 7.8 MG/DL (8.3-10.6); CARBON DIOXIDE LEVEL 27.0 MMOL/L (20-31); CHLORIDE LEVEL 96.0 MMOL/L (98-107); CREATININE FOR GFR 6.32 MG/DL (0.70-1.30); GLOMERULAR FILTRATION RATE 8.6 (>42); POTASSIUM SERUM 4.0 MMOL/L (3.5-5.1); SODIUM LEVEL 139.0 MMOL/L (136-145)
[2025-02-19] MEDS ORDERED: SENNOSIDES/DOCUSATE SODIUM 8.6 MG/50MG TAB PO PRN (14:40)
[2025-02-19] MEDS ORDERED: BISACODYL 5 MG TAB PO PRN (14:40)
[2025-02-19] MEDS: DOCUSATE SODIUM 100 MG CAPSULE PO SCH (20:01)
[2025-02-20] VITALS (16 sets, daily range): BP systolic 126–152; BP diastolic 62–79; TEMP 96.8–98.6; O2SAT 95–98
[2025-02-20 05:31] LABS: PLATELET COUNT, AUTOMATED 60 10^3/uL (150-450)
[2025-02-20 05:49] LABS: ALT/SGPT 32.0 U/L (7.0-40); AST/SGOT 58.0 U/L (<34); CALCIUM LEVEL 8.1 MG/DL (8.3-10.6); CARBON DIOXIDE LEVEL 29.0 MMOL/L (20-31); CHLORIDE LEVEL 95.0 MMOL/L (98-107); CREATININE FOR GFR 6.8 MG/DL (0.70-1.30); GLOMERULAR FILTRATION RATE 7.9 (>42); POTASSIUM SERUM 4.1 MMOL/L (3.5-5.1); SODIUM LEVEL 138.0 MMOL/L (136-145)
[2025-02-20] MEDS ORDERED: HEPARIN 1,000 UNITS/ML 10 ML VIAL (FOR RADIOLOGY & DIALYSIS ONLY) IV PRN ×2 (06:00→14:25)
[2025-02-20] MEDS ORDERED: SODIUM CHLORIDE 0.9% 1000 ML IV PRN (06:00)
[2025-02-20 06:46] LABS: PLATELET COUNT, AUTOMATED 60 10^3/uL (150-450)
[2025-02-20 10:50] LABS: MAGNESIUM LEVEL 2.3 MG/DL (1.8-2.4)
[2025-02-20] MEDS ORDERED: MAG SULF 1GM/100ML (MAG RUN) 1 GM in IV 1 EA IV ONE (11:00)
[2025-02-20] MEDS ORDERED: CALCIUM GLUCONATE 1,000 MG in DEXTROSE 5% (D5W) MINI-BAG PLU 100 ML IV ONE (12:00)
[2025-02-20] MEDS: INSULIN LISPRO (NovoLOG) PER UNIT SC SCH ×2 (12:39→20:11)
[2025-02-20] MEDS ORDERED: ceFAZolin SODIUM 2 GM in DEXTROSE 5% (D5W) ADV/MINI-BAG 50 ML IV ONE (14:25)
[2025-02-20] MEDS: MIDAZOLAM INJ 2 MG/2 ML VIAL IV PRN (15:03)
[2025-02-20] MEDS: NS (Normal Saline) 0.9% 1,000 ML IV SCH (15:04)
[2025-02-20] MEDS: LIDOCAINE 1% MDV 20 ML VIAL SC SCH (15:07)
[2025-02-20] MEDS: HEPARIN 1,000 UNITS/ML 10 ML VIAL (FOR RADIOLOGY & DIALYSIS ONLY) XX SCH (15:08)
[2025-02-20 20:21] LABS: Antimyeloperxidase(MPO) Abs < 1.0 AI (<1.0)
[2025-02-21 02:00] VITALS: BP 167/77; TEMP 98; O2SAT 97
[2025-02-21 05:13] LABS: PLATELET COUNT, AUTOMATED 57 10^3/uL (150-450)
[2025-02-21 05:37] LABS: ALT/SGPT 31.0 U/L (7.0-40); AST/SGOT 60.0 U/L (<34); CALCIUM LEVEL 8.3 MG/DL (8.3-10.6); CARBON DIOXIDE LEVEL 26.0 MMOL/L (20-31); CHLORIDE LEVEL 100.0 MMOL/L (98-107); CREATININE FOR GFR 5.62 MG/DL (0.70-1.30); GLOMERULAR FILTRATION RATE 10.0 (>42); POTASSIUM SERUM 4.4 MMOL/L (3.5-5.1); SODIUM LEVEL 139.0 MMOL/L (136-145)
[2025-02-21] MEDS ORDERED: SODIUM CHLORIDE 0.9% 1000 ML IV PRN (06:00)
[2025-02-21] MEDS ORDERED: HEPARIN 1,000 UNITS/ML 10 ML VIAL (FOR RADIOLOGY & DIALYSIS ONLY) XX SCH (06:00)
[2025-02-21 08:00] VITALS: BP 155/81; TEMP 96.8; O2SAT 96
[2025-02-21] MEDS: HEPARIN 1,000 UNITS/ML 10 ML VIAL (FOR RADIOLOGY & DIALYSIS ONLY) IV PRN (12:46)
[2025-02-21 13:00] VITALS: BP 151/86; TEMP 98.3; O2SAT 96
[2025-02-21 16:00] VITALS: BP 138/75; TEMP 98.3; O2SAT 96
[2025-02-21 20:00] VITALS: BP 150/86; TEMP 97.7; O2SAT 98
[2025-02-22 04:00] VITALS: BP 133/79; TEMP 97.3; O2SAT 96
[2025-02-22 08:00] VITALS: BP 122/80; TEMP 98.1; O2SAT 98
[2025-02-22 10:32] LABS: BASO # 0.0 10^3/uL (0.0-0.2); BASO % 0.1 % (0.0-1.0); EOS # 0.0 10^3/uL (0.0-0.5); EOS % 0.1 % (0.0-3.0); LYMPH # 0.3 10^3/uL (1.5-5.0); LYMPH % 2.8 % (24.0-44.0); MONO # 0.7 10^3/uL (0.0-0.8); MONO % 6.2 % (2.0-8.0); NEUTROPHILS # 10.8 10^3/uL (1.5-8.5); NEUTROPHILS % 89.7 % (36.0-66.0)
[2025-02-22 10:34] LABS: PLATELET COUNT, AUTOMATED 60 10^3/uL (150-450)
[2025-02-22 11:08] LABS: CALCIUM LEVEL 8.0 MG/DL (8.3-10.6); CARBON DIOXIDE LEVEL 24.0 MMOL/L (20-31); CHLORIDE LEVEL 100.0 MMOL/L (98-107); CREATININE FOR GFR 4.44 MG/DL (0.70-1.30); GLOMERULAR FILTRATION RATE 13.2 (>42); PHOSPHORUS LEVEL 5.4 MG/DL (2.4-5.1); POTASSIUM SERUM 3.9 MMOL/L (3.5-5.1); SODIUM LEVEL 136.0 MMOL/L (136-145)
[2025-02-22 11:34] VITALS: BP 108/75; TEMP 98.4; O2SAT 97
[2025-02-22] MEDS: LIDOCAINE 1% MDV 20 ML VIAL SC ONE (13:26)
[2025-02-22 13:32] LABS: BORRELIA SPECIES DNA NOT DETECTED (NOT DETECT)
[2025-02-22 16:12] VITALS: BP 151/85; TEMP 98.6; O2SAT 97
[2025-02-22 20:00] VITALS: BP 152/86; TEMP 98.2; O2SAT 97
[2025-02-23] MEDS ORDERED: SODIUM CHLORIDE 0.9% 1000 ML IV PRN (06:00)
[2025-02-23] MEDS ORDERED: HEPARIN 1,000 UNITS/ML 10 ML VIAL (FOR RADIOLOGY & DIALYSIS ONLY) XX SCH (06:00)
[2025-02-23] MEDS: HEPARIN 1,000 UNITS/ML 10 ML VIAL (FOR RADIOLOGY & DIALYSIS ONLY) IV PRN (09:34)
[2025-02-23 12:30] VITALS: BP 149/84; TEMP 98.1; O2SAT 97
[2025-02-23 15:53] LABS: PLATELET COUNT, AUTOMATED 67 10^3/uL (150-450)
[2025-02-23 15:55] LABS: CALCIUM LEVEL 9.0 MG/DL (8.3-10.6); CARBON DIOXIDE LEVEL 24.0 MMOL/L (20-31); CHLORIDE LEVEL 103.0 MMOL/L (98-107); CREATININE FOR GFR 2.95 MG/DL (0.70-1.30); GLOMERULAR FILTRATION RATE 21.6 (>42); PHOSPHORUS LEVEL 3.4 MG/DL (2.4-5.1); POTASSIUM SERUM 4.4 MMOL/L (3.5-5.1); SODIUM LEVEL 138.0 MMOL/L (136-145)
[2025-02-23 17:46] VITALS: TEMP 101.4
[2025-02-23 18:15] VITALS: TEMP 103.4
[2025-02-23] MEDS: ACETAMINOPHEN 325 MG TAB PO PRN (18:38)
[2025-02-23 19:09] VITALS: TEMP 101.4
[2025-02-23 20:59] VITALS: BP 104/75; TEMP 100.8; O2SAT 93
[2025-02-24 03:43] VITALS: BP 114/75; TEMP 99.8; O2SAT 99
[2025-02-24 08:46] LABS: BASO # 0.0 10^3/uL (0.0-0.2); BASO % 0.0 % (0.0-1.0); EOS # 0.0 10^3/uL (0.0-0.5); EOS % 0.3 % (0.0-3.0); LYMPH # 0.5 10^3/uL (1.5-5.0); LYMPH % 8.0 % (24.0-44.0); MONO # 0.8 10^3/uL (0.0-0.8); MONO % 11.3 % (2.0-8.0); NEUTROPHILS # 5.3 10^3/uL (1.5-8.5); NEUTROPHILS % 79.2 % (36.0-66.0)
[2025-02-24 08:51] LABS: PLATELET COUNT, AUTOMATED 60 10^3/uL (150-450)
[2025-02-24 09:09] LABS: ALT/SGPT 29.0 U/L (7.0-40); AST/SGOT 40.0 U/L (<34); CALCIUM LEVEL 8.2 MG/DL (8.3-10.6); CARBON DIOXIDE LEVEL 24.0 MMOL/L (20-31); CHLORIDE LEVEL 99.0 MMOL/L (98-107); CREATININE FOR GFR 4.19 MG/DL (0.70-1.30); GLOMERULAR FILTRATION RATE 14.2 (>42); POTASSIUM SERUM 4.7 MMOL/L (3.5-5.1); SODIUM LEVEL 134.0 MMOL/L (136-145)
[2025-02-24] MEDS: PIPERACILLIN/TAZOBACTAM SOD 2.25 GM in DEXTROSE 5% (D5W) ADV/MINI-BAG 50 ML IV SCH (09:13)
[2025-02-24 13:25] VITALS: BP 120/65; TEMP 97.5; O2SAT 97
[2025-02-24] MEDS: PIPERACILLIN/TAZOBACTAM SOD 4.5 GM in DEXTROSE 5% (D5W) ADV/MINI-BAG 50 ML IV SCH (17:07)
[2025-02-24] MEDS ORDERED: PIPERACILLIN/TAZOBACTAM SOD 2.25 GM in DEXTROSE 5% (D5W) ADV/MINI-BAG 50 ML IV SCH (18:00)
[2025-02-24 20:13] VITALS: BP 132/76; TEMP 98.8; O2SAT 98
[2025-02-24 23:02] LABS: ANCA SCREEN REFLEX Negative (Negative)
[2025-02-25 03:40] VITALS: BP 139/82; TEMP 99.1; O2SAT 96
[2025-02-25] MEDS ORDERED: HEPARIN 1,000 UNITS/ML 10 ML VIAL (FOR RADIOLOGY & DIALYSIS ONLY) IV PRN (06:00)
[2025-02-25] MEDS ORDERED: SODIUM CHLORIDE 0.9% 1000 ML IV PRN (06:00)
[2025-02-25] MEDS ORDERED: HEPARIN 1,000 UNITS/ML 10 ML VIAL (FOR RADIOLOGY & DIALYSIS ONLY) XX SCH (06:00)
[2025-02-25 12:15] VITALS: BP 138/78; TEMP 98.4; O2SAT 96
[2025-02-25 20:00] VITALS: BP 119/60; TEMP 99.1; O2SAT 99
[2025-02-25] MEDS: OMEPRAZOLE 20MG CAP PO SCH (20:37)
[2025-02-26 03:37] VITALS: BP 140/71; TEMP 100.5; O2SAT 98
[2025-02-26 07:34] VITALS: BP 137/71; TEMP 98.1; O2SAT 100
[2025-02-26 11:03] LABS: BASO # 0.0 10^3/uL (0.0-0.2); BASO % 0.0 % (0.0-1.0); EOS # 0.2 10^3/uL (0.0-0.5); EOS % 2.4 % (0.0-3.0); LYMPH # 0.8 10^3/uL (1.5-5.0); LYMPH % 10.6 % (24.0-44.0); MONO # 0.6 10^3/uL (0.0-0.8); MONO % 8.8 % (2.0-8.0); NEUTROPHILS # 5.6 10^3/uL (1.5-8.5); NEUTROPHILS % 77.5 % (36.0-66.0)
[2025-02-26 11:05] LABS: PLATELET COUNT, AUTOMATED 61 10^3/uL (150-450)
[2025-02-26 11:13] LABS: ERYTHROCYTE SEDIMENTATION RATE 56 mm/hr (0-20)
[2025-02-26 12:00] VITALS: BP 102/63; TEMP 98.6; O2SAT 90
[2025-02-26 12:10] LABS: ALT/SGPT 27.0 U/L (7.0-40); AST/SGOT 35.0 U/L (<34); C REACTIVE PROTEIN QUANTITATIV 16.74 MG/DL (<1.0); CALCIUM LEVEL 7.6 MG/DL (8.3-10.6); CARBON DIOXIDE LEVEL 25.0 MMOL/L (20-31); CHLORIDE LEVEL 100.0 MMOL/L (98-107); CREATININE FOR GFR 4.2 MG/DL (0.70-1.30); GLOMERULAR FILTRATION RATE 14.1 (>42); POTASSIUM SERUM 4.3 MMOL/L (3.5-5.1); SODIUM LEVEL 135.0 MMOL/L (136-145)
[2025-02-26] MEDS ORDERED: cefTAZidime 2 GM in DEXTROSE 5% (D5W) ADV/MINI-BAG 50 ML IV SCH (18:00)
[2025-02-26] MEDS ORDERED: VANCOMYCIN HCL 1,000 MG in IV FLUID PLACE HOLDER 1 EA IV SCH (18:15)
[2025-02-26] MEDS ORDERED: VANCOMYCIN HCL 1,000 MG, VIAL MATE ADAPTER 1 EACH in NS 250 ML IV ONE (20:00)
[2025-02-26 21:21] VITALS: BP 127/70; TEMP 99; O2SAT 94
[2025-02-27] VITALS (9 sets, daily range): BP systolic 118–146; BP diastolic 67–81; TEMP 98.1–99.5; O2SAT 92–100
[2025-02-27] MEDS ORDERED: LIDOCAINE 1% SDV 5 ML VIAL SC PRN (06:00)
[2025-02-27] MEDS ORDERED: HEPARIN 1,000 UNITS/ML 10 ML VIAL (FOR RADIOLOGY & DIALYSIS ONLY) IV PRN (06:00)
[2025-02-27] MEDS ORDERED: SODIUM CHLORIDE 0.9% 1000 ML IV PRN (06:00)
[2025-02-27 06:09] LABS: BASO # 0.0 10^3/uL (0.0-0.2); BASO % 0.2 % (0.0-1.0); EOS # 0.2 10^3/uL (0.0-0.5); EOS % 3.3 % (0.0-3.0); LYMPH # 0.8 10^3/uL (1.5-5.0); LYMPH % 13.8 % (24.0-44.0); MONO # 0.7 10^3/uL (0.0-0.8); MONO % 12.5 % (2.0-8.0); NEUTROPHILS # 3.8 10^3/uL (1.5-8.5); NEUTROPHILS % 69.5 % (36.0-66.0)
[2025-02-27 06:12] LABS: PLATELET COUNT, AUTOMATED 60 10^3/uL (150-450)
[2025-02-27 06:38] LABS: CALCIUM LEVEL 7.0 MG/DL (8.3-10.6); CARBON DIOXIDE LEVEL 26.0 MMOL/L (20-31); CHLORIDE LEVEL 100.0 MMOL/L (98-107); CREATININE FOR GFR 5.28 MG/DL (0.70-1.30); GLOMERULAR FILTRATION RATE 10.7 (>42); POTASSIUM SERUM 4.1 MMOL/L (3.5-5.1); SODIUM LEVEL 134.0 MMOL/L (136-145)
[2025-02-27] MEDS ORDERED: CEFPODOXIME PROXETIL 200 MG TABLET PO SCH (09:00)
[2025-02-27] MEDS ORDERED: LINEZOLID 600 MG TABLET PO SCH (09:00)
[2025-02-27] MEDS: HEPARIN 1,000 UNITS/ML 10 ML VIAL (FOR RADIOLOGY & DIALYSIS ONLY) XX SCH (10:14)
[2025-02-27] MEDS ORDERED: VANCOMYCIN HCL 1,000 MG, VIAL MATE ADAPTER 1 EACH in NS 250 ML IV ONE (11:00)
[2025-02-27] MEDS ORDERED: cefTAZidime 2 GM in DEXTROSE 5% (D5W) ADV/MINI-BAG 50 ML IV SCH (12:00)
[2025-02-27] MEDS ORDERED: CALC1CAP PO (15:51)
[2025-02-27] MEDS ORDERED: AMLO1TAB25 PO (15:51)
[2025-02-27] MEDS ORDERED: VANCOMYCIN HCL 1,000 MG, VIAL MATE ADAPTER 1 EACH in NS 250 ML IV SCH (16:00)
[2025-02-27] MEDS: cefTAZidime 2 GM in DEXTROSE 5% (D5W) ADV/MINI-BAG 50 ML IV SCH (18:11)
[2025-02-27] MEDS: VANCOMYCIN HCL 1,500 MG, VIAL MATE ADAPTER 1 EACH in NS 500 ML IV SCH (18:50)
[2025-02-28 05:25] VITALS: BP 145/81; TEMP 98.7; O2SAT 97
[2025-02-28 06:45] LABS: BASO # 0.0 10^3/uL (0.0-0.2); BASO % 0.2 % (0.0-1.0); EOS # 0.2 10^3/uL (0.0-0.5); EOS % 2.5 % (0.0-3.0); LYMPH # 0.8 10^3/uL (1.5-5.0); LYMPH % 12.3 % (24.0-44.0); MONO # 0.7 10^3/uL (0.0-0.8); MONO % 10.9 % (2.0-8.0); NEUTROPHILS # 4.7 10^3/uL (1.5-8.5); NEUTROPHILS % 73.2 % (36.0-66.0)
[2025-02-28 06:52] LABS: PLATELET COUNT, AUTOMATED 51 10^3/uL (150-450)
[2025-02-28 07:08] LABS: CALCIUM LEVEL 7.5 MG/DL (8.3-10.6); CARBON DIOXIDE LEVEL 28.0 MMOL/L (20-31); CHLORIDE LEVEL 99.0 MMOL/L (98-107); CREATININE FOR GFR 3.86 MG/DL (0.70-1.30); GLOMERULAR FILTRATION RATE 15.6 (>42); POTASSIUM SERUM 3.8 MMOL/L (3.5-5.1); SODIUM LEVEL 135.0 MMOL/L (136-145)
[2025-02-28] MEDS: **NOTE PATIENT COMMENT** MISC XX SCH (08:19)
[2025-02-28 08:23] VITALS: BP 130/75
[2025-03-01 11:07] LABS: T P ELECTROPHORESIS SO 5.7 g/dL (6.1-8.1)
== END 2025-02-28 12:19 | disposition home or self-care (01) | DRG 673 ==
LOC: M MSPAV 17:27 → M PCU 02-15 22:27 → M ICU 02-17 17:42 → M MSPAV 02-22 16:06
PROVIDERS: ADMIT Student in an Organized Health Care Education/Training Program; ATTEND General Practice
PROC: 0TB13ZX Excision of Left Kidney, Percutaneous Approach, Diagnostic (ICD-10-PCS; 2025-02-17)
PROC: B4171ZZ Fluoroscopy of Left Renal Artery using Low Osmolar Contrast (ICD-10-PCS; 2025-02-17)
PROC: 30233N1 Transfusion of Nonautologous Red Blood Cells into Peripheral Vein, Percutaneous Approach (ICD-10-PCS; 2025-02-17)
PROC: 30233R1 Transfusion of Nonautologous Platelets into Peripheral Vein, Percutaneous Approach (ICD-10-PCS; 2025-02-17)
PROC: 04V Lower Arteries, Restriction (ICD-10-PCS; principal; 2025-02-17 09:00)
PROC: 0JH63XZ Insertion of Tunneled Vascular Access Device into Chest Subcutaneous Tissue and Fascia, Percutaneous Approach (ICD-10-PCS; 2025-02-20)
PROC: 02HV33Z Insertion of Infusion Device into Superior Vena Cava, Percutaneous Approach (ICD-10-PCS; 2025-02-20)
PROC: 5A1D70Z Performance of Urinary Filtration, Intermittent, Less than 6 Hours Per Day (ICD-10-PCS; 2025-02-20)
PROC: 07DR3ZX Extraction of Iliac Bone Marrow, Percutaneous Approach, Diagnostic (ICD-10-PCS; 2025-02-22)
DX: I12.0 Hypertensive chronic kidney disease with stage 5 chronic kidney disease or end stage renal disease (principal); E43 Unspecified severe protein-calorie malnutrition; N18.6 End stage renal disease; N17.0 Acute kidney failure with tubular necrosis; D61.818 Other pancytopenia; E87.21 Acute metabolic acidosis; N99.840 Postprocedural hematoma of a genitourinary system organ or structure following a genitourinary system procedure; D62 Acute posthemorrhagic anemia; K80.10 Calculus of gallbladder with chronic cholecystitis without obstruction; E87.1 Hypo-osmolality and hyponatremia; R31.29 Other microscopic hematuria; E11.22 Type 2 diabetes mellitus with diabetic chronic kidney disease; E78.5 Hyperlipidemia, unspecified; E03.9 Hypothyroidism, unspecified; R63.0 Anorexia; K21.9 Gastro-esophageal reflux disease without esophagitis; R16.1 Splenomegaly, not elsewhere classified; Z66 Do not resuscitate; I71.21 Aneurysm of the ascending aorta, without rupture; R63.4 Abnormal weight loss; D69.6 Thrombocytopenia, unspecified; E87.6 Hypokalemia; D50.9 Iron deficiency anemia, unspecified; R50.9 Fever, unspecified; E87.5 Hyperkalemia; I48.0 Paroxysmal atrial fibrillation; R62.7 Adult failure to thrive; D73.5 Infarction of spleen; Z99.2 Dependence on renal dialysis; Z79.82 Long term (current) use of aspirin; Z79.890 Hormone replacement therapy; Z79.899 Other long term (current) drug therapy; Z95.2 Presence of prosthetic heart valve; Z85.46 Personal history of malignant neoplasm of prostate; Z90.49 Acquired absence of other specified parts of digestive tract; Z87.891 Personal history of nicotine dependence

== ENCOUNTER → 2025-02-14 | Outpatient (REF) | payer MEDICARE ==
[~2025-02-14] MED LIST changes: +ASPI81TA26 PO; -FAMO1TAB11; +FAMO1TAB11 PO; +MED REC COMMENT; +SODI650T PO; -TIMO5DRO9 OP; +TIMO5DRO9 OU
[2025-02-14 16:52] LABS: INR 1.15
== END ==
LOC: M LAB REF 16:37
PROVIDERS: ATTEND Internal Medicine Nephrology
DX: R31.9 Hematuria, unspecified (principal)

== ENCOUNTER → 2025-03-30 | Outpatient (CLI) | payer MEDICARE ==
[~2025-03-30] MED LIST changes: +AMLO1TAB25 PO; +ASPI81TA26 PO; +CALC1CAP PO; +MED REC COMMENT; +METO1TAB32; +SODI650T PO
== END ==
LOC: M LAB 16:05
PROVIDERS: ATTEND Urology
DX: C61 Malignant neoplasm of prostate (principal)